=== PATIENT | male | born 1970 | race Caucasian/White ===

== ENCOUNTER 2021-04-16 04:48 | Emergency (ER) | payer MEDICAID ==
[~2021-04-16] VITALS: Ht 165.1 cm; Wt 87.0 kg
[2021-04-16] MEDS ORDERED: MORPHINE SULFATE 4 MG/ML CPJ (NOT FOR IM USE) IV STA (06:58)
[2021-04-16] MEDS ORDERED: KETOROLAC 30MG/ML VIAL IV STA (06:58)
[2021-04-16] MEDS ORDERED: ONDANSETRON HCL 4MG/2ML INJ IV STA (06:58)
[2021-04-16] MEDS ORDERED: SODIUM CHLORIDE 0.9% 1,000 ML IV ONE (07:00)
[2021-04-16 07:46] LABS: BASOPHILS % 0.8 % (0.0-2.0); CHLORIDE 108 mEq/L (98-107); EOSINOPHILS % 8.6 % (0.0-5.0); HEMATOCRIT. 39.5 % (42.0-52.0); HEMOGLOBIN. 13.8 g/dL (14.0-18.0); LYMPHOCYTES % 33.6 % (20.0-50.0); MEAN CORPUSCULAR HEMOGLOBIN 34.8 pg (28.0-32.0); MEAN CORPUSCULAR VOLUME 99.7 fL (80.0-94.0); MEAN PLATELET VOLUME 9.1 fl (7.4-10.4); MONOCYTES % 8.3 % (2.0-8.0); NEUTROPHILS % 48.7 % (40.0-76.0); RED BLOOD CELL COUNT 3.96 mill/uL (4.7-6.1); RED CELL DISTRIBUTION WIDTH 14.4 % (11.6-14.6)
[2021-04-16 07:55] LABS: PLATELET 50 x1000/uL (130-400)
[2021-04-16 08:06] LABS: CLARITY URINE CLEAR (CLEAR); COLOR URINE YELLOW (YELLOW); KETONES URINE NEGATIVE (NEGATIVE); LEUKOCYTE ESTERASE URINE NEGATIVE (NEGATIVE); NITRITE URINE NEGATIVE (NEGATIVE); OCCULT BLOOD URINE 3+ (NEGATIVE); PROTEIN URINE NEGATIVE (NEGATIVE); SPECIFIC GRAVITY URINE 1.013 (1.005-1.030)
[2021-04-16] MEDS ORDERED: MORPHINE SULFATE 2 MG/ML CPJ (NOT FOR IM USE) IV NR (08:30)
[2021-04-16] MEDS ORDERED: IBUP-2028 MT (09:05)
[2021-04-16] MEDS ORDERED: HYDR-4001 MT (09:05)
[2021-04-16] MEDS ORDERED: TAMS-11 MT (09:05)
[2021-04-16 09:30] VITALS: BP 133/82
== END 2021-04-16 09:30 | disposition home or self-care (01) ==
LOC: ER 05:41
DX: N23 Unspecified renal colic (principal); D69.6 Thrombocytopenia, unspecified
CPT/HCPCS: 36415; 74176; 80053; 81003; 83690; 85025; 93005; 96374; 96375; 99285; J1885; J2270; J2405; J7030